=== PATIENT | male | born 1985 | race Caucasian/White ===

== ENCOUNTER 2021-04-30 15:24 | Emergency (ER) | payer OTHER, BC ==
[~2021-04-30] VITALS: Ht 172.7 cm; Wt 93.6 kg
[2021-04-30 15:43] VITALS: BP 165/90
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
[2021-04-30] MEDS ORDERED: DIPH,PERTUSS(ACELL),TET VAC/PF 0.5 ML SYRINGE. VAX IM ONE ×2 (15:53→16:00)
[2021-05-26] MEDS ORDERED: ESCITALOPRAM OX10 MG PO (09:33)
[2021-05-26] MEDS ORDERED: Nicotine 21MG Patch TD (09:33)
[2021-05-26] MEDS ORDERED: MULT1TAB92 PO (09:33)
[2021-05-26] MEDS ORDERED: NALT50TA PO (09:33)
[2021-05-26] MEDS ORDERED: LORA-254 PO (09:39)
== END 2021-04-30 15:57 | disposition home or self-care (01) ==
LOC: ER 15:24
DX: S01.01XA Laceration without foreign body of scalp, initial encounter (principal); W22.8XXA Striking against or struck by other objects, initial encounter; Y93.89 Activity, other specified; Y92.89 Other specified places as the place of occurrence of the external cause; Y99.0 Civilian activity done for income or pay
CPT/HCPCS: 12001; 99282; 99283

== ENCOUNTER 2021-05-24 21:25 | Observation (INO) | payer BC, OTHER ==
[~2021-05-24] VITALS: Ht 167.6 cm; Wt 110.4 kg
[2021-05-24] MEDS ORDERED: diphenhydrAMINE 50 MG/ML VIAL ONE (22:39)
[2021-05-24] MEDS ORDERED: IV RINGERS SOLUTION,LACTATED 1,000 ML IV ONE (23:15)
--- NOTE | 2021-05-24 23:23 | PHYS DOC ---
Past History Past Surgical History: No Surgical History Alcohol Use: Heavy Adult General Chief Complaint Chief Complaint: OVERDOSE HPI HPI Patient is a 36-year-old male, with a past medical history significant for alcoholism drinking 15-20 beers a day and taking Ativan who presents with a chief complaint of insomnia and overdose. States he has only been sleeping about 3 hours a night over the last couple of months, and is getting tired of it. States he had a fleeting thought of suicide and took fourteen 0.5 Ativan today over the course of the whole day not at once, and has had 15 beers and 5 shots today. States his main goal was to be able to fall asleep. States he did have fleeting thoughts of suicide but does not think that was why he actually d id it. Denies any recent trauma, travels, illnesses, fevers, chest pain, shortness of breath, abdominal pain, nausea, vomiting. Denies any other drug use. Review of Systems Review of Systems Constitutional: Denies fever or chills [] Eyes: Denies change in visual acuity, redness, or eye pain [] HENT: Denies nasal congestion or sore throat [] Respiratory: Denies cough or shortness of breath [] Cardiovascular: No additional information not addressed in HPI [] GI: Denies abdominal pain, nausea, vomiting, bloody stools or diarrhea [] : Denies dysuria or hematuria [] Musculoskeletal: Denies back pain or joint pain [] Integument: Denies rash or skin lesions [] Neurologic: Denies headache, focal weakness or sensory changes [] Endocrine: Denies polyuria or polydipsia [] All other systems were reviewed and found to be within normal limits, except as documented in this note. Current Medications Current Medications Current Medications Medications (Trade) Dose Ordered Sig/Isiah Start Time Stop Time Status Last Admin Dose Admin Diphenhydramine HCl (Benadryl) 50 mg STK-MED ONCE 05/24/21 22:39 05/24/21 22:39 DC Allergies Allergies Allergies Coded Allergies Type Severity Reaction Last Updated Verified No Known Drug Allergies 04/30/21 No Physical Exam Physical Exam Constitutional: Well developed, well nourished, no acute distress, non-toxic appearance. [] HENT: Normocephalic, atraumatic, bilateral external ears normal, oropharynx moist, no oral exudates, nose normal. [] Eyes: conjunctiva normal, no discharge. [] Neck: Normal range of motion, no tenderness, supple, no stridor. [] Cardiovascular:Heart rate regular rhythm, no murmur [] Lungs & Thorax: Bilateral breath sounds clear to auscultation [] Abdomen: soft, no tenderness, no masses, no pulsatile masses. [] Skin: Warm, dry, no erythema, no rash. [] Back: No tenderness, no CVA tenderness. [] Extremities: No tenderness, no cyanosis, no clubbing, ROM intact, no edema. [] Neurologic: Alert and oriented X 3, normal motor function, normal sensory function, no focal deficits noted. [] Psychologic: Affect flat, judgement abnormal, mood depressed, suicidal ideation in passing but denies it now, no homicidal ideation and no hallucinations. [] Current Patient Data Vital Signs Vital Signs Date Time Temp Pulse Resp B/P (MAP) Pulse Ox O2 Delivery O2 Flow Rate FiO2 05/24/21 21:48 98.2 104 16 141/82 (101) 97 Room Air EKG EKG [] Radiology/Procedures Radiology/Procedures [] Heart Score C/O Chest Pain: No Risk Factors: Risk Factors: DM, Current or recent (<one month) smoker, HTN, HLP, family history of CAD, obesity. Risk Scores: Risk Factors: DM, Current or recent (<one month) smoker, HTN, HLP, family history of CAD, obesity. Course & Med Decision Making Course & Med Decision Making Patient is a 36-year-old male who presents after drinking 15 beers and 5 shots and taking 14 Ativan over the course of the day in a main attempt to be able to go to sleep as he states he is only slept about 3 hours a night over the last couple of months with fleeting thoughts of wanting to just go to sleep and stay asleep and not wake up. Currently denies SI, HI or hallucinations. Vital signs notable for sinus tachycardia. Physical exam noted above. Patient placed on monitor with IV access established and IV fluid resuscitation begun with BIOM and replacement given. PAT team evaluated and felt he would be appropriate for admission. Given patient's high risk for alcohol withdrawal, felt it appropriate the patient be admitted for [facility] protocol and when complete, reevaluated for inpatient psychiatric admission. Discussed patient with Dr. Green who accepted to [facility] for continued evaluation and treatment of alcohol abuse, concern for alcohol withdrawal and Ativan abuse. Dragon Disclaimer Dragon Disclaimer This electronic medical record was generated, in whole or in part, using a voice recognition dictation system. Departure Departure: Impression: Primary Impression: Alcohol abuse Additional Impressions: Ativan use disorder, mild, abuse Suicidal ideation Disposition: ADMITTED INPATIENT Admitting Physician: Melody Green Condition: STABLE Referrals: MARTIN BAY MD (PCP) Problem Qualifiers MILA BRICE MD May 24, 2021 23:23
[2021-05-24] MEDS ORDERED: CYANOCOBALAMIN (VITAMIN B-12) 1,000 MCG TABLET. PO ONE (23:45)
[2021-05-24] MEDS ORDERED: FOLIC ACID 1 MG TABLET PO ONE (23:45)
[2021-05-24 23:46] LABS: BARBITURATES NEG (NEG); BENZODIAZEPINES NEG (NEG); CANNABINOIDS NEG (NEG); COCAINE NEG (NEG); METHADONE NEG (NEG); OPIATES NEG (NEG); PHENCYCLIDINE NEG (NEG)
[2021-05-24 23:49] LABS: AMPHETAMINE/METHAMPHETAMINE NEG (NEG)
[2021-05-24 23:55] LABS: BACTERIA,URINE 0 /HPF (0-FEW); BILIRUBIN,URINE NEG (NEG); CLARITY,URINE CLEAR; COLOR,URINE YELLOW; GLUCOSE,URINE NEG (NEG); NITRITE,URINE NEG (NEG); RBC,URINE 0 /HPF (0-2); UROBILINOGEN,URINE 0.2 mg/dL (0.2 mg/dL); WBC,URINE RARE /HPF (0-4)
[2021-05-25] MEDS ORDERED: ONDANSETRON PF 4 MG/2 ML VIAL. IVP PRN (00:30)
[2021-05-25] MEDS ORDERED: cloNIDine HCL 0.1 MG TABLET PO PRN (00:30)
[2021-05-25] MEDS ORDERED: IV DEXTROSE 5% - 0.9 % NACL 1,000 ML IV ONE (00:30)
--- NOTE | 2021-05-25 02:06 | EKG ---
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
[2021-05-25 02:11] LABS: BASO # 0.1 x10^3/uL (0.0-0.2); BASO % 1 % (0-3); EOS # 0.1 x10^3/uL (0.0-0.7); EOS % 2 % (0-3); HEMATOCRIT 49.7 % (39.0-53.0); HEMOGLOBIN 17.1 g/dL (13.0-17.5); LYMPH # 3.3 x10^3/uL (1.0-4.8); LYMPH % 34 % (24-48); MEAN CORPUSCULAR HEMOGLOBIN 32 pg (25-35); MEAN CORPUSCULAR HGB CONC 34 g/dL (31-37); MEAN CORPUSCULAR VOLUME 92 fL (79-100); MONO # 0.6 x10^3/uL (0.0-1.1); MONO % 6 % (0-9); NEUT # 5.6 x10^3uL (1.8-7.7); NEUT % 57 % (31-73); PLATELET COUNT 204 x10^3/uL (140-400); RED CELL DISTRIBUTION WIDTH 13.6 % (11.5-14.5); WHITE BLOOD COUNT 9.8 x10^3/uL (4.0-11.0)
[2021-05-25 02:20] LABS: CALCIUM 8.2 mg/dL (8.5-10.1); GFR 84.5; POTASSIUM 3.7 mmol/L (3.5-5.1)
[2021-05-25 02:26] LABS: ALBUMIN 3.8 g/dL (3.4-5.0); ALBUMIN/GLOBULIN RATIO 1.2 (1.0-1.7); MAGNESIUM 2.1 mg/dL (1.8-2.4); TOTAL BILIRUBIN 0.4 mg/dL (0.2-1.0)
[2021-05-25] MEDS ORDERED: IV RINGERS SOLUTION,LACTATED 1,000 ML IV SCH (05:15)
[2021-05-25 06:06] VITALS: BP 93/59
[2021-05-25] MEDS ORDERED: NO HOME MEDICATIONS (06:31)
[2021-05-25 11:17] VITALS: BP 105/64
[2021-05-25] MEDS: LORazepam 1 MG TABLET PO PRN ×2 (12:26→20:39)
[2021-05-25] MEDS: NALTREXONE HCL 50 MG TABLET PO SCH (15:00)
[2021-05-25 16:50] VITALS: BP 120/62
--- NOTE | 2021-05-25 19:14 | HP ---
ADMIT DATE: 05/25/2021 HISTORY OF PRESENT ILLNESS: This is a 36-year-old male who has a problem with alcoholism, drinking 15-20 beers a day, taking Ativan, chief complaint of insomnia and overdose. The patient has been sleeping for 3 hours a night last couple of months, getting tired of it. He has been having fleeting thoughts of suicide, took 14 of 0.5 Ativan over the course of the day, 15 beers, 5 shots of hard liquor. The patient's main goal is to fall asleep. He has had fleeting thoughts of suicide, but does not think he would actually do it, has no other plans per se, but was admitted for further evaluation of alcohol intoxication, overdose of benzodiazepine, suicidal ideation, history of hypertension, depression, alcohol use, sleep difficulties, family problems. FAMILY HISTORY: Unremarkable. ALLERGIES: No known allergies. SOCIAL HISTORY: As noted, has about [id number] history of smoking, alcohol use as indicated. The patient is a full code. REVIEW OF SYSTEMS: The patient notes that he is very sleepy at the present time because of the overdose of the Ativan, not able to give much of a history there. PHYSICAL EXAMINATION: GENERAL: This is a white male, well developed; however, markedly sedated. VITAL SIGNS: Blood pressure 93/60, respiratory rate 20, pulse 80, afebrile, 97% on room air. HEENT: The patient's head was atraumatic, normocephalic. Eyes: PERRLA, somewhat constricted. The mouth and throat were normal. NECK: Supple. LUNGS: Diminished throughout, poor movement of air. CARDIOVASCULAR: Regular sinus rhythm. ABDOMEN: Protuberant, soft, diffuse tenderness in the abdominal area. EXTREMITIES: Without clubbing, cyanosis or edema. NEUROLOGIC: The patient alert and oriented. LABORATORY DATA: COVID negative. Sodium 140, potassium 3.7. Liver enzymes appear to be basically normal. White count 9, hemoglobin 7 and hematocrit 49. IMPRESSION: Alcoholism for detoxification, Ativan overdose, suicidal ideation. PLAN: As above. Continue to monitor the patient accordingly, make further evaluation on him and continue to monitor, psych consult and make further assessment as noted. NILDA/ADELA/RODDY DR: NILDA/aden TID: [id number]
[2021-05-25 20:58] VITALS: BP 124/80
[2021-05-25] MEDS: NICOTINE 21MG PATCH. TD SCH (21:05)
[2021-05-25 22:59] VITALS: BP 117/73
[2021-05-26] MEDS: LORazepam 1 MG TABLET PO PRN (06:18)
[2021-05-26 06:21] VITALS: BP 113/75
[2021-05-26 06:50] LABS: BASO % 1 % (0-3); EOS # 0.2 x10^3/uL (0.0-0.7); EOS % 2 % (0-3); HEMOGLOBIN 17.4 g/dL (13.0-17.5); LYMPH # 1.7 x10^3/uL (1.0-4.8); LYMPH % 20 % (24-48); MEAN CORPUSCULAR HEMOGLOBIN 32 pg (25-35); MEAN CORPUSCULAR HGB CONC 34 g/dL (31-37); MEAN CORPUSCULAR VOLUME 93 fL (79-100); MONO # 0.6 x10^3/uL (0.0-1.1); MONO % 7 % (0-9); NEUT # 5.8 x10^3uL (1.8-7.7); NEUT % 70 % (31-73); PLATELET COUNT 178 x10^3/uL (140-400); RED BLOOD COUNT 5.46 x10^6/uL (4.30-5.70); RED CELL DISTRIBUTION WIDTH 13.9 % (11.5-14.5); WHITE BLOOD COUNT 8.3 x10^3/uL (4.0-11.0)
[2021-05-26 07:05] LABS: CALCIUM 8.7 mg/dL (8.5-10.1); CREATININE 1.1 mg/dL (0.7-1.3); GFR 75.7; POTASSIUM 4.2 mmol/L (3.5-5.1)
[2021-05-26] MEDS: NICOTINE 21MG PATCH. TD SCH (08:22)
[2021-05-26] MEDS: NALTREXONE HCL 50 MG TABLET PO SCH (08:27)
[2021-05-26] MEDS ORDERED: MULTIVITAMIN with MINERAL TABLET. PO SCH (09:00)
[2021-05-26] MEDS ORDERED: THIAMINE 100 MG TABLET. PO SCH (09:00)
[2021-05-26] MEDS ORDERED: FOLIC ACID 1 MG TABLET PO SCH (09:00)
[2021-05-26] MEDS ORDERED: MULT1TAB92 PO (09:33)
[2021-05-26] MEDS ORDERED: NALT50TA PO (09:33)
[2021-05-26] MEDS ORDERED: Nicotine 21MG Patch TD (09:33)
[2021-05-26] MEDS ORDERED: ESCITALOPRAM OX10 MG PO (09:33)
[2021-05-26] MEDS ORDERED: LORA-254 PO (09:39)
[2021-05-30] MEDS ORDERED: THIAMINE IM 200 MG/2 ML VIAL. IM SCH (09:00)
== END 2021-05-26 10:49 | disposition home or self-care (01) ==
LOC: ER 21:25 → 1 SOUTH 05-25 04:36 → INTOOBSV 05-25 04:36
PROVIDERS: ADMIT Family Medicine; ATTEND Family Medicine
DX: T42.4X2A Poisoning by benzodiazepines, intentional self-harm, initial encounter (principal); G47.00 Insomnia, unspecified; F10.20 Alcohol dependence, uncomplicated; F13.10 Sedative, hypnotic or anxiolytic abuse, uncomplicated; I10 Essential (primary) hypertension; Z20.822 Contact with and (suspected) exposure to COVID-19; Z87.891 Personal history of nicotine dependence; Z79.899 Other long term (current) drug therapy; Y92.89 Other specified places as the place of occurrence of the external cause
CPT/HCPCS: 36415; 80048; 80053; 80307; 81001; 83690; 83735; 85025; 93005; 96361; 96374; 99284; G0378; G0379; J2405; J7042; J7120; U0003; 99285-25

== ENCOUNTER 2021-07-23 17:54 | Emergency (ER) | payer BC ==
[~2021-07-23] VITALS: Ht 167.6 cm; Wt 88.8 kg
[~2021-07-23 17:54] MED LIST: ESCITALOPRAM OX10 MG PO; LORA-254 PO; MULT1TAB92 PO; NALT50TA PO; NO HOME MEDICATIONS; Nicotine 21MG Patch TD
--- NOTE | 2021-07-23 18:07 | PHYS DOC ---
Past History Past Surgical History: No Surgical History Alcohol Use: Heavy Adult General HPI HPI Patient is a 36-year-old male with a past medical history significant for diverticulitis, and pancreatitis who presents with a chief complaint of epigastric pain and dark stools for day. States has been having some discomfort in his abdomen and epigastric area over the last few days, 6 out of 10 at its worst, dull and achy and burning in nature with no radiation. States he did take some Pepto-Bismol yesterday and had some dark stools today. Denies any recent travels, traumas, illnesses, fevers, chest pain, shortness of breath, hematemesis, dysuria, hematuria, diarrhea. States he is a heavy alcohol drinker but has never been through alcohol withdrawals and has had no withdrawal seizure. Review of Systems Review of Systems Review of systems otherwise unremarkable except noted in HPI Allergies Allergies Allergies Coded Allergies Type Severity Reaction Last Updated Verified No Known Drug Allergies 04/30/21 No Physical Exam Physical Exam Constitutional: Well developed, well nourished, no acute distress, non-toxic appearance. [] HENT: Normocephalic, atraumatic, bilateral external ears normal, oropharynx moist, no oral exudates, nose normal. [] Eyes: conjunctiva normal, no discharge. [] Neck: Normal range of motion, no tenderness, supple, no stridor. [] Cardiovascular:Heart rate regular rhythm, no murmur [] Lungs & Thorax: Bilateral breath sounds clear to auscultation [] Abdomen: soft, generalized tenderness, worse in the epigastrium with no rebound or guarding,, no masses, no pulsatile masses. No blood on rectal exam. [] Skin: Warm, dry, no erythema, no rash. [] Back: no CVA tenderness. [] Extremities: No tenderness, no cyanosis, no clubbing, ROM intact, no edema. [] Neurologic: Alert and oriented X 3, normal motor function, normal sensory function, no focal deficits noted. [] Psychologic: Affect normal, judgement normal, mood normal. [] EKG EKG [] Radiology/Procedures Radiology/Procedures [] Heart Score C/O Chest Pain: No Risk Factors: Risk Factors: DM, Current or recent (<one month) smoker, HTN, HLP, family history of CAD, obesity. Risk Scores: Risk Factors: DM, Current or recent (<one month) smoker, HTN, HLP, family history of CAD, obesity. Course & Med Decision Making Course & Med Decision Making Patient is a 36-year-old male who presents with epigastric pain and dark stools Vital signs not concerning. Physical exam noted above. Placed on the monitor with IV access established. Made n.p.o. Started on IV fluid. Given Protonix and GI cocktail. [] Dragon Disclaimer Dragon Disclaimer This electronic medical record was generated, in whole or in part, using a voice recognition dictation system. Departure Departure: Impression: Primary Impression: Abdominal pain Disposition: HOME / SELF CARE / HOMELESS Condition: GOOD Referrals: MARTIN BAY MD (PCP) Patient Instructions: Abdominal Pain (Nonspecific) Additional Instructions: Thank you for coming into the emergency department tonight and allowing us to take care of you. Please read the attached information carefully to go back over some of the things we discussed. Over the next couple of days please eat a light clear diet with lots of fluids to allow for some bowel rest. You can continue to use Pepto-Bismol as needed but remember this can turn your tongue and your stool black. Is very important that you follow-up with your primary care physician first thing Sunday to update on ED visit and set up a follow-up appointment. Please come back with new or concerning symptoms as discussed. MILA BRICE MD Jul 23, 2021 18:06
[2021-07-23] MEDS ORDERED: LIDO:MAALOX 1:1 20 ML SINGLE DOSE. PO ONE (19:00)
[2021-07-23] MEDS ORDERED: IOHEXOL 300 MG/ML 75 ML VIAL. IV ONE (19:00)
[2021-07-23] MEDS ORDERED: PANTOPRAZOLE IV 40 MG VIAL. IVP ONE (19:00)
[2021-07-23 19:10] LABS: BASO % 1 % (0-3); EOS # 0.1 x10^3/uL (0.0-0.7); EOS % 1 % (0-3); HEMATOCRIT 52.4 % (39.0-53.0); HEMOGLOBIN 17.9 g/dL (13.0-17.5); LYMPH # 1.9 x10^3/uL (1.0-4.8); LYMPH % 27 % (24-48); MEAN CORPUSCULAR HEMOGLOBIN 32 pg (25-35); MEAN CORPUSCULAR HGB CONC 34 g/dL (31-37); MEAN CORPUSCULAR VOLUME 93 fL (79-100); MONO # 0.9 x10^3/uL (0.0-1.1); MONO % 14 % (0-9); NEUT % 58 % (31-73); PLATELET COUNT 203 x10^3/uL (140-400); RED BLOOD COUNT 5.62 x10^6/uL (4.30-5.70); RED CELL DISTRIBUTION WIDTH 14.5 % (11.5-14.5); WHITE BLOOD COUNT 6.9 x10^3/uL (4.0-11.0)
[2021-07-23 19:15] LABS: BACTERIA,URINE 0 /HPF (0-FEW); BILIRUBIN,URINE NEG (NEG); CLARITY,URINE CLEAR; COLOR,URINE YELLOW; GLUCOSE,URINE NEG (NEG); NITRITE,URINE NEG (NEG); RBC,URINE 0 /HPF (0-2); UROBILINOGEN,URINE 0.2 mg/dL (0.2 mg/dL); WBC,URINE 0 /HPF (0-4)
[2021-07-23 19:16] LABS: CALCIUM 8.8 mg/dL (8.5-10.1); CREATININE 1.1 mg/dL (0.7-1.3); GFR 75.7
[2021-07-23 19:22] LABS: ALBUMIN/GLOBULIN RATIO 1.3 (1.0-1.7); TOTAL BILIRUBIN 0.3 mg/dL (0.2-1.0); TOTAL PROTEIN 7.2 g/dL (6.4-8.2)
--- NOTE | 2021-07-23 19:46 | RAD ---
Exam: CT of abdomen and pelvis with contrast INDICATION: Epigastric pain TECHNIQUE: Sequential axial images through the abdomen and pelvis obtained following the administrati on of 75 mL of Omni 300 IV contrast. Sagittal and coronal reformatted images were reconstructed from the axial data and reviewed. Exposure: One or more of the following in the visualized dose reduction techniques were utilized for this examination: 1. Automated exposure control 2. Adjustment of the MA and/or KV according to patient size 3. Use of iterative of reconstructive technique Comparisons: None FINDINGS: Heart size is normal. No pericardial effusion. Visualized lung bases are clear. No pleural Liver, spleen, pancreas, gallbladder and adrenals are unremarkable. No perinephric inflammation or hydronephrosis. No renal or ureteral calculi are identified. Bladder is partially distended and not well evaluated. Prostate is not enlarged. Large and small bowel are unremarkable. Appendix is normal. No free intra-abdominal air or fluid. No obstruction. Abdominal aorta has normal course and caliber. Abdominal vasculature is patent. No enlarged intra-abdominal lymph nodes are identified. No suspicious osseous lesions or acute fractures. IMPRESSION: No acute process identified within the abdomen or pelvis. Electronically signed by: Yecenia Cervantes MD (07/23/2021 7:44 PM) [facility]
[2021-07-23 20:00] VITALS: BP 130/78
--- NOTE | 2021-07-24 04:20 | EKG ---
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
== END 2021-07-23 20:03 | disposition home or self-care (01) ==
LOC: ER 17:54
DX: R10.13 Epigastric pain (principal)
CPT/HCPCS: 36415; 74177; 80053; 81001; 83690; 84484; 85025; 93005; 96374; 99285; C9113; Q9967